=== PATIENT | female | born 1955 | race African-American/Black ===

== ENCOUNTER 2018-12-04 16:05 | Emergency (ER) | payer OTHER ==
[2018-12-04 16:29] LABS: ADD MAN DIFF? NO
[2018-12-04] MEDS ORDERED: NITROGLYCERIN (SL) 0.4 MG TAB SL (16:30)
[2018-12-04 16:32] LABS: WHITE BLOOD COUNT 7.2 10^3/ul (4.8-10.8)
[2018-12-04 16:32] LABS: BASOPHILS % 0.6 % (0.0-2.0); EOSINOPHILS # 0.2 10^3/ul (0.0-0.5); EOSINOPHILS % 3.1 % (0.0-7.0); HEMATOCRIT 33.9 % (37.0-47.0); HEMOGLOBIN 10.5 g/dl (12.0-16.0); LYMPHOCYTES # 1.9 10^3/ul (0.8-2.9); LYMPHOCYTES % 26.3 % (15.0-51.0); MEAN CORPUSCULAR VOLUME 83.9 fl (82.0-101.0); MEAN PLATELET VOLUME 9.8 fl (7.4-10.4); MONOCYTE # 0.7 10^3/ul (0.3-0.9); MONOCYTES % 9.3 % (0.0-11.0); NEUTROPHIL # 4.4 10^3/ul (1.6-7.5); NEUTROPHILS % 60.4 % (39.0-77.0); PLATELET COUNT 334 10^3/UL (140-415); RED BLOOD COUNT 4.04 10^6/ul (4.20-5.40); RED CELL DISTRIBUTION WIDTH 16.2 % (11.5-14.5)
[2018-12-04] MEDS: NITROGLYCERIN 2% 1 GM OINT PKT TD (16:32)
[2018-12-04 16:49] LABS: ANION GAP 6 (5-13); BLOOD UREA NITROGEN 26 mg/dl (7-20); CALCIUM 9.3 mg/dl (8.4-10.2); CARBON DIOXIDE 29 mmol/L (21-31); CHLORIDE 102 mmol/L (97-110); CREATININE 1.13 mg/dl (0.44-1.00); Estimated GFR 58 mL/min (>60); POTASSIUM 4.5 mmol/L (3.5-5.1); SODIUM 137 mmol/L (135-144)
[2018-12-04 16:51] LABS: GLUCOSE 448 mg/dl (70-220)
[2018-12-04 17:01] LABS: TROPONIN-I < 0.012 ng/ml (0.000-0.120)
[2018-12-04] MEDS: ACCU-CHEK XX (17:16)
[2018-12-04] MEDS: INSULIN LISPRO 100 UNIT/ML VIAL SC (17:23)
== END 2018-12-04 21:10 | disposition short-term general hospital (02) ==
LOC: E/R 16:05
DX: R07.9 Chest pain, unspecified (principal); I10 Essential (primary) hypertension; E11.65 Type 2 diabetes mellitus with hyperglycemia; F17.210 Nicotine dependence, cigarettes, uncomplicated; I25.10 Atherosclerotic heart disease of native coronary artery without angina pectoris; Z98.61 Coronary angioplasty status; Z79.82 Long term (current) use of aspirin; Z79.4 Long term (current) use of insulin
CPT/HCPCS: 36415; 71045; 80048; 82962; 84484; 85025; 93005; 99285-25